=== PATIENT | male | born 1950 | race Caucasian/White ===

== ENCOUNTER 2017-06-28 22:33 | Emergency (ER) | payer MEDICARE, OTHER ==
[2017-06-28] MEDS ORDERED: Sodium Chloride 0.9% 500 ML IV ONE (23:23)
[2017-06-28] MEDS: Sodium Chloride 0.9% 10 ML Syringe FLUSH PRN (23:34)
[2017-06-29] MEDS ORDERED: Iopamidol 755 Mg/ML 100 ML Bottle IVPUSH ONE (00:13)
--- NOTE | 2017-06-29 00:23 | EDM.PDOC ---
ED HPI GENERAL MEDICAL PROBLEM - General Chief Complaint: Respiratory Problem Stated Complaint: SOB Time Seen by Provider: 06/28/17 23:13 Source of Information: Reports: Patient, RN Notes Reviewed - History of Present Illness INITIAL COMMENTS - FREE TEXT/NARRATIVE: 67-year-old male comes in with concern about shortness of breath. He did have a right shoulder replacement 3 or 4 days ago. He feels that he is doing okay with that. However yesterday evening and then continuing today he feels short of breath, especially when he lies flat. He did have some slight discomfort with deep inspiration earlier today but that is gone. He has not been coughing. No fever or chills. No abd pain nausea or vomiting. He does not have known history for cardiac or pulmonary disease. However he did have blood clots about 8 years ago after some type of surgical procedure. He also has been having upset stomach. He feels like the antibiotic he is on has been upsetting his stomach. - Related Data Allergies Allergy/AdvReac Type Severity Reaction Status Date / Time No Known Allergies Allergy Verified 06/28/17 22:48 Home Meds: Home Meds Hctz. 1 tab PO DAILY 02/07/14 [History] Ramipril. 1 tab PO DAILY 02/07/14 [History] Acetaminophen/HYDROcodone [[place] 325-5 MG] 1 tab PO ASDIRECTED PRN 06/28/17 [ History] Aspirin [Aspirin EC] 650 mg PO BID 06/28/17 [History] Cephalexin 500 mg PO ASDIRECTED 06/28/17 [History] Past Medical History Respiratory History: Reports: PE - Past Surgical History GI Surgical History: Reports: Hernia Repair/Other Musculoskeletal Surgical History: Reports: Shoulder Surgery, Other (See Below) Other Musculoskeletal Surgeries/Procedures:: back surgery Social & Family History - Tobacco Use Smoking Status *Q: Never Smoker Second Hand Smoke Exposure: No - Caffeine Use Caffeine Use: Reports: Coffee - Recreational Drug Use Recreational Drug Use: No ED ROS GENERAL - Review of Systems Review Of Systems: See Below Constitutional: Denies: Fever, Chills, Diaphoresis HEENT: Denies: Sinus Problem, Throat Pain Respiratory: Reports: Shortness of Breath, Pleuritic Chest Pain. Denies: Cough (Mild, gone) Cardiovascular: Reports: Chest Pain (Mild, gone) GI/Abdominal: Reports: Abdominal Pain, Decreased Appetite, Nausea (Occasional). Denies: Vomiting Musculoskeletal: Reports: Shoulder Pain (Right shoulder status post surgery) Skin: Reports: No Symptoms Neurological: Denies: Numbness, Tingling, Weakness ED EXAM, GENERAL - Physical Exam Exam: See Below General Appearance: Alert, No Apparent Distress Eye Exam: Bilateral Eye: PERRL Throat/Mouth: Normal Inspection, Normal Oropharynx Head: No: Facial Swelling Neck: Supple, Full Range of Motion, Other Respiratory/Chest: No Respiratory Distress (No JVD), Lungs Clear, Normal Breath Sounds. No: Rales, Rhonchi, Wheezing Cardiovascular: Regular Rate, Rhythm GI/Abdominal: Soft, Tender. No: Guarding, Rebound (Mild diffuse tenderness) Extremities: Normal Inspection, Normal Range of Motion, Other (Incision right shoulder appears to be healing quite satisfactorily, no unusual warmth, erythema or drainage). No: Pedal Edema, Leg Pain Neurological: Alert, Oriented, No Motor/Sensory Deficits Course - Vital Signs Last Recorded V/S: Last Vital Signs Temp 96.7 F 06/28/17 22:43 Pulse 60 06/29/17 00:00 Resp 7 L 06/29/17 00:00 BP 102/68 06/28/17 23:15 Pulse Ox 94 L 06/29/17 00:00 - Orders/Labs/Meds Orders: Active Orders 24 hr Category Date Time Status EKG 12 Lead [EKG Documentation Completion] [RC] STAT Care 06/28/17 23:14 Active Peripheral IV Care [RC] . DIRECTED Care 06/28/17 23:15 Active Ang Chest [CT] Stat Exams 06/29/17 00:00 Taken Chest 1V Frontal [CR] Stat Exams 06/28/17 23:14 Taken Peripheral IV Insertion Adult [OM.PC] Stat Oth 06/28/17 23:15 Ordered Labs: Laboratory Tests 06/28/17 06/28/17 06/28/17 Range/Units 23:25 23:25 23:25 WBC 7.40 (4.23-9.07) K/mm3 RBC 4.01 L (4.63-6.08) M/mm3 Hgb 12.6 L (13.7-17.5) gm/L Hct 36.4 L (40.1-51.0) % MCV 90.8 (79.0-92.2) fl MCH 31.4 (25.7-32.2) pg MCHC 34.6 (32.2-35.5) g/dl RDW Std Deviation 38.8 (35.1-43.9) fL Plt Count 350 H (163-337) K/mm3 MPV 8.2 L (9.4-12.3) fl Neut % (Auto) 52.9 (34.0-67.9) % Lymph % (Auto) 33.0 (21.8-53.1) % [place] % (Auto) 8.0 (5.3-12.2) % Eos % (Auto) 4.1 (0.8-7.0) Baso % (Auto) 0.5 (0.1-1.2) % Neut # (Auto) 3.92 (1.78-5.38) K/mm3 Lymph # (Auto) 2.44 (1.32-3.57) K/mm3 [place] # (Auto) 0.59 (0.30-0.82) K/mm3 Eos # (Auto) 0.30 (0.04-0.54) K/mm3 Baso # (Auto) 0.04 (0.01-0.08) K/mm3 Manual Slide Review Normal smear D-Dimer, Quantitative 3.35 H (0.19-0.59) mg/L Sodium 139 (136-145) mEq/L Potassium 4.0 (3.5-5.1) mEq/L Chloride 100 (98-107) mEq/L Carbon Dioxide 30 (21-32) mEq/L Anion Gap 13.0 (5-15) BUN 23 H (7-18) mg/dL Creatinine 0.9 (0.7-1.3) mg/dL Est Cr Clr Drug Dosing 85.99 mL/min Estimated GFR (MDRD) > 60 (>60) mL/min BUN/Creatinine Ratio 25.6 H (14-18) Glucose 113 (80-115) mg/dL Calcium 10.3 H (8.5-10.1) mg/dL Total Bilirubin 0.4 (0.2-1.0) mg/dL AST 19 (15-37) U/L ALT 22 (16-63) U/L Alkaline Phosphatase 66 (46-116) U/L Troponin I < 0.017 (0.00-0.056) ng/mL NT-Pro-B Natriuret Pep 42 (0-125) pg/mL Total Protein 7.5 (6.4-8.2) g/dl Albumin 3.5 (3.4-5.0) g/dl Globulin 4.0 gm/dL Albumin/Globulin Ratio 0.9 L (1-2) Meds: Medications Discontinued Medications Generic Name Dose Route Start Last Admin Trade Name Julia PRN Reason Stop Dose Admin Sodium Chloride 500 mls @ 999 mls/hr 06/28/17 23:23 06/28/17 23:34 Normal Saline IV 06/28/17 23:53 999 mls/hr .BOLUS ONE Administration Iopamidol 100 ml 06/29/17 00:13 06/29/17 00:35 Isovue-370 (76%) IVPUSH 06/29/17 00:14 100 ml ONETIME ONE Administration Sodium Chloride 10 ml 06/28/17 23:14 06/29/17 00:35 Saline Flush FLUSH 10 ml ASDIRECTED PRN Administration Keep Vein Open - Re-Assessments/Exams Free Text/Narrative Re-Assessment/Exam: 06/29/17 012:37 Chest x-ray was normal. White blood count normal. EKG does not show significant acute changes. D-dimer did come back elevated at around 3.3. Is not surprising considering recent surgery just 3 or 4 days ago. However based on current symptoms of shortness of breath with no other cause we'll proceed with CT pulmonary angiogram to rule out pulmonary embolism. Patient is agreeable with that. 2:30. CT pulmonary angiogram negative for thromboembolic disease. No apparent acute abnormality. See Radiology report for details. Departure - Departure Time of Disposition: 01:41 Disposition: Home, Self-Care 01 Condition: Fair Clinical Impression: Dyspnea Qualifiers: Dyspnea type: unspecified Qualified Code(s): R06.00 - Dyspnea, unspecified Abdominal pain Qualifiers: Abdominal location: generalized Qualified Code(s): R10.84 - Generalized abdominal pain - Discharge Information Instructions: Shortness of Breath, [id number], Abdominal Pain, Adult, Easy-to -Read Referrals: Florian Red MD [Primary Care Provider] - Forms: ED Department Discharge Additional Instructions: Begin probiotic twice daily, clear liquids and bland diet as tolerated, avoid fatty and spicy foods for now, minimal dairy products ingestion until GI symptoms resolving, taper pain medication as tolerated, return to ED if symptoms worsening in any way - My Orders Last 24 Hours: My Active Orders 06/28/17 23:14 EKG 12 Lead [EKG Documentation Completion] [RC] STAT Chest 1V Frontal [CR] Stat 06/28/17 23:15 Peripheral IV Care [RC] . DIRECTED Peripheral IV Insertion Adult [OM.PC] Stat 06/29/17 00:00 Ang Chest [CT] Stat - Assessment/Plan Last 24 Hours: My Active Orders 06/28/17 23:14 EKG 12 Lead [EKG Documentation Completion] [RC] STAT Chest 1V Frontal [CR] Stat 06/28/17 23:15 Peripheral IV Care [RC] . DIRECTED Peripheral IV Insertion Adult [OM.PC] Stat 06/29/17 00:00 Ang Chest [CT] Stat
[2017-06-29] MEDS: Sodium Chloride 0.9% 10 ML Syringe FLUSH PRN (00:35)
--- NOTE | 2017-06-29 06:42 | CR ---
Chest: Portable view of the chest was obtained. Comparison: No prior chest imaging. Heart size is normal. Tortuous thoracic aorta is seen. Right shoulder prosthesis is noted. Previous spine surgery is seen within the lumbar spine. Old healed left upper rib fracture is seen. Impression: 1. Incidental findings. Nothing acute is identified. Diagnostic code #2
--- NOTE | 2017-06-29 06:49 | CT ---
CT chest Technique: Multiple axial sections through the chest were obtained. Intravenous contrast was utilized. Study has been performed as a pulmonary angiogram protocol. Comparison: No prior chest CT. Findings: Pulmonary arteries are moderately well-opacified. No filling defects are seen to indicate pulmonary embolism. Very minimal coronary artery calcification is seen. Several lymph nodes are noted within the mediastinum which are felt to be within normal limits. No axillary adenopathy is seen. No pericardial thickening is seen. Several low density lesions are noted within the liver which likely represent minimal cysts. Other visualized portions of the upper abdomen are within normal limits. Slight thickening of the minor fissure is seen on the right side believed to be incidental. Lungs show nothing acute. [employer] view shows right shoulder prosthesis and previous spine surgery. Impression: 1. No findings of pulmonary embolism. 2. Minimal thickening of the right minor fissure believed to be incidental. Minimal cysts within the liver. 3. Nothing acute is seen. Diagnostic code #2 I agree with preliminary report issued by B[facility] Box ([facility] preliminary report dictated on 06/29/17, 1:58 AM Central Time)
== END 2017-06-29 01:50 | disposition home or self-care (01) ==
LOC: JD.ED 22:33
DX: R06.02 Shortness of breath (principal); R10.84 Generalized abdominal pain; Z79.899 Other long term (current) drug therapy; Z96.611 Presence of right artificial shoulder joint
CPT/HCPCS: 36415; 71010; 71275; 80053; 83880; 84484; 85025; 85379; 93005; 96360; 99285; J7040; J7050; Q9967; 99284

== ENCOUNTER 2024-01-06 16:59 | Emergency (ER) | payer MEDICARE, OTHER ==
[2024-01-06] MEDS ORDERED: Lidocaine 1% 10 ML MDV INJECT ONE (18:22)
[2024-01-06] MEDS: Diphtheria,Pertussis(Acell),Tetanus Vaccine 0.5 ML Syringe IM ONE (19:02)
== END 2024-01-06 19:50 | disposition home or self-care (01) ==
LOC: JD.ED 16:59
DX: S01.01XA Laceration without foreign body of scalp, initial encounter (principal); I10 Essential (primary) hypertension; Z23 Encounter for immunization; Z79.899 Other long term (current) drug therapy; W22.8XXA Striking against or struck by other objects, initial encounter
CPT/HCPCS: 12002; 70450; 70450-26; 90471; 90715; 99283; 99283-25

== ENCOUNTER 2024-09-22 18:51 | Emergency (ER) | payer MEDICARE, OTHER ==
[2024-09-22] MEDS: Oxymetazoline 0.05% Nasal Spray 30 ML Bottle NAS ONE (21:19)
== END 2024-09-22 21:25 | disposition home or self-care (01) ==
LOC: JD.ED 18:51
DX: R04.0 Epistaxis (principal); I10 Essential (primary) hypertension; Z79.899 Other long term (current) drug therapy
CPT/HCPCS: 99283; A9270